=== PATIENT | female | born 1965 | race Caucasian/White ===

== ENCOUNTER 2020-06-25 09:57 | Day surgery (SDC) | payer BC ==
[~2020-06-25] VITALS: Ht 162.6 cm; Wt 92.7 kg
[2020-06-25] MEDS ORDERED: LACTATED RINGERS 1,000 ML IV SCH (10:30)
[2020-06-25] MEDS ORDERED: PLEASE ENTER HEIGHT AND WEIGHT MC SCH (11:00)
[2020-06-25] MEDS ORDERED: CHLORHEXIDINE 15 ML UDC MM ONE (11:00)
[2020-06-25] MEDS ORDERED: ASPI81TA45 PO (11:05)
[2020-06-25] MEDS ORDERED: MELO15TA24 PO (11:05)
[2020-06-25] MEDS ORDERED: OMEP40CA42 PO (11:05)
[2020-06-25] MEDS ORDERED: COLC0.6T37 PO (11:05)
[2020-06-25] MEDS ORDERED: GABA300C PO (11:05)
[2020-06-25] MEDS ORDERED: TRINTELLIX PO (11:05)
[2020-06-25] MEDS ORDERED: SEMA1PEN SQ (11:05)
[2020-06-25] MEDS ORDERED: LISI-170 PO (11:05)
[2020-06-25] MEDS ORDERED: ATOR40TA78 PO (11:05)
[2020-06-25] MEDS ORDERED: METO25TA91 PO (11:05)
[2020-06-25] MEDS ORDERED: EMPA1TAB21 PO (11:05)
[2020-06-25] MEDS ORDERED: QUET200T PO (11:05)
[2020-06-25 11:24] VITALS: BP 135/88
[2020-06-25] MEDS ORDERED: MIDAZOLAM 1 MG/ML, 2ML ONE (12:12)
[2020-06-25] MEDS ORDERED: FENTANYL PF 100 MCG/2ML ONE (12:12)
[2020-06-25] MEDS ORDERED: BUPIVACAINE/PF 0.25% ONE (12:17)
[2020-06-25] MEDS ORDERED: VANCOMYCIN 1,000 MG ONE ×2 (12:59→13:00)
[2020-06-25] MEDS ORDERED: KETOROLAC 30 MG/1 ML ONE (13:04)
[2020-06-25] MEDS ORDERED: ONDANSETRON 2MG/ML, 2ML ONE (13:20)
[2020-06-25] MEDS ORDERED: PROPOFOL 10 MG/ML, 20ML ONE (13:20)
[2020-06-25] MEDS ORDERED: CEFAZOLIN 1,000 MG ONE (13:20)
[2020-06-25] MEDS ORDERED: DEXAMETHASONE 4 MG/ML, 1ML ONE (13:20)
[2020-06-25] MEDS ORDERED: LIDOCAINE-MPF 2% ,5ML ONE (13:20)
[2020-06-25] MEDS ORDERED: ACETAMINOPHEN 325 MG TABLET PO PRN (13:30)
[2020-06-25] MEDS ORDERED: MEPERIDINE/PF 25MG/0.5ML IVPush PRN (13:30)
[2020-06-25] MEDS ORDERED: HYDROmorphone 1 MG/ML, 1ML INJ IVPush PRN (13:30)
[2020-06-25] MEDS ORDERED: LABETALOL 5MG/ML, 20ML IV PRN (13:30)
[2020-06-25] MEDS ORDERED: OXYcodone 5 MG/5 ML ORAL.SOL UDC PO PRN (13:30)
[2020-06-25] MEDS ORDERED: FENTANYL PF 100 MCG/2ML IV PRN (13:30)
[2020-06-25] MEDS ORDERED: hydrALAzine 20 MG/ML, 1ML IV PRN (13:30)
[2020-06-25] MEDS ORDERED: ALBUTEROL SULFATE 2.5 MG/3 ML NPPB PRN (13:30)
[2020-06-25] MEDS ORDERED: PROMETHAZINE 25 MG/ML, 1ML IVPush PRN (13:30)
== END 2020-06-25 15:50 | disposition home or self-care (01) ==
LOC: OUT 09:57
PROVIDERS: ATTEND Orthopaedic Surgery Foot and Ankle Surgery
DX: T81.31XA Disruption of external operation (surgical) wound, not elsewhere classified, initial encounter (principal); G89.18 Other acute postprocedural pain; I10 Essential (primary) hypertension; E11.9 Type 2 diabetes mellitus without complications; K21.9 Gastro-esophageal reflux disease without esophagitis; M79.7 Fibromyalgia; E66.9 Obesity, unspecified; Z79.82 Long term (current) use of aspirin; Z79.1 Long term (current) use of non-steroidal anti-inflammatories (NSAID); Z79.891 Long term (current) use of opiate analgesic; Z79.899 Other long term (current) drug therapy; Z87.891 Personal history of nicotine dependence; Z98.890 Other specified postprocedural states; Z82.61 Family history of arthritis; Z82.49 Family history of ischemic heart disease and other diseases of the circulatory system; Y83.8 Other surgical procedures as the cause of abnormal reaction of the patient, or of later complication, without mention of misadventure at the time of the procedure
CPT/HCPCS: 13160; 20680; 64445; 64447; 73600; 82962; 87070; 87075; 87077; 87102; 87116; 87147; 87186; 87205; 87206; 87635; C1713; J0690; J1100; J1885; J2250; J2405; J2704; J3010; J3370; J7120; 76000